=== PATIENT | male | born 1960 | race African-American/Black ===

== ENCOUNTER 2023-12-29 09:19 | Outpatient (NON) | payer BC, SELFPAY | END 2023-12-29 09:20 | disposition home or self-care (01) | LOC: ANHGOSHLAB 09:20 | PROVIDERS: PCP Family Medicine; Visit Provider Student in an Organized Health Care Education/Training Program | DX: R82.90 Unspecified abnormal findings in urine (principal); N39.0 Urinary tract infection, site not specified | CPT/HCPCS: 36415; 80053; 83036; 87077; 87086; 87186 ==

== ENCOUNTER 2023-12-29 09:37 | Outpatient (CLI) | payer BC, SELFPAY ==
[2023-12-29 15:38] LABS: Alanine Aminotransferase 20 U/L (6-50); Albumin Level 4.2 g/dL (3.5-5.1); Alkaline Phosphatase 121 U/L (38-126); Anion Gap 8 mmol/L (4-12); Aspartate Amino Transferase 38 U/L (17-59); Bilirubin,Total 0.8 mg/dL (0.2-1.3); Blood Urea Nitrogen 20 mg/dL (9-20); Calcium 8.5 mg/dL (8.4-10.2); Carbon Dioxide 27 mmol/L (22-30); Chloride 99 mmol/L (98-107); Estimated Glomerular Filt Rate 50; Glucose 91 mg/dL (65-110); Potassium 4.1 mmol/L (3.4-5.0); Sodium 134 mmol/L (137-145)
== END 2023-12-29 09:38 | disposition home or self-care (01) ==
LOC: ANHGOSHLAB 09:38
PROVIDERS: PCP Family Medicine; Visit Provider Student in an Organized Health Care Education/Training Program
DX: R63.1 Polydipsia (principal)
CPT/HCPCS: 36415; 80053; 83036